=== PATIENT | female | born 1975 | race African-American/Black ===

== ENCOUNTER 2016-08-27 21:29 | Emergency (ER) | payer BC ==
[~2016-08-27] VITALS: Ht 167.6 cm; Wt 78.5 kg
--- NOTE | ~2016-08-27 | EKG ---
[address] [place] [address] ELECTROCARDIOGRAM REPORT Name: RANDEE WOLF Room #: DEP [facility]#: [id number] Admission: 08/27/16 Attend Phys: Discharge: 08/27/16 Date of : 75 Report #: [id number] THIS REPORT FOR: //name// [facility] ED Test Date: 2016-08-27 Test Time: 21:33:50 Pat Name: RANDEE WOLF Department: Room: Gender: F Drafter (Cad) Electrical: VICKIE : 1975 Requested By: Brielle Ibarra Order Number: [id number] MD: Fuentes De Anda Measurements Intervals [place] Rate: 63 P: 48 CT: 139 QRS: 76 QRSD: 89 T: 11 QT: 401 QTc: 411 Interpretive Statements Sinus rhythm Minimal ST depression, inferior leads Compared to ECG 12/23/2015 15:37:22 ST (T wave) deviation now present Sinus bradycardia no longer present Electronically Signed On 08-28-2016 8:27:46 DEPORTATION OFFICER by Fuentes De Anda [email or web address] <ELECTRONICALLY SIGNED> By: [place] [id number] 32 32 Fuentes De Anda MD /DIONI
[~2016-08-27 21:29] MED LIST: IBUPROFEN 600600 M1 PO; MACROBID 100 M100 M1 PO; METHADONE HCL 110 M1 PO; MOBIC15 MG PO; NAPROSYN500 MG PO; NEURONTIN 300300 M1 PO; NOHOMEMEDICATIONS; NORCO 5-325 TA1 EACH PO; NYSTATIN 100,0015 G1 TP; PREDNISONE 20 M20 MG PO; PROVENTIL HFA6.7 G1 INH; TESSALON PERLE100 MG PO; TRAMADOL 50 MG50 MG PO; ULTRAM 50MG TAB50 MG PO; VITAMIN D2000 UNIT PO; ZPAK PO
[2016-08-27] MEDS ORDERED: IBUPROFEN 800800 M1 PO (21:46)
[2016-08-27 21:56] LABS: ABSOLUTE NEUTROPHILS 5.4 thou/uL (1.4-8.2); BASOPHILS 0.8 % (0.0-2.0); EOSINOPHILS 1.9 % (0.0-3.0); HEMATOCRIT 38.7 % (37.0-47.0); HEMOGLOBIN 12.9 gm/dL (12.0-15.0); MCHC 33.3 % (28.0-37.0); MCV 81.1 fL (80.0-100.0); MONOCYTES 6.3 % (1.0-8.0); PLATELET COUNT 301 thou/uL (150-400); RBC 4.78 mil/uL (4.20-5.00); RDW 13.9 % (10.5-14.5); WBC 9.3 thou/uL (4.0-11.0)
[2016-08-27 22:12] LABS: MANUAL DIFF NO
[2016-08-27 22:25] LABS: ANION GAP 10 mmol/L (7-16); BUN 12 mg/dL (7-18); CALCIUM 9.3 mg/dL (8.5-10.1); CHLORIDE 105 mmol/L (98-107); CO2 26 mmol/L (21-32); CREATININE 0.8 mg/dL (0.6-1.3); GLUCOSE 86 mg/dL (70-99); POTASSIUM 4.1 mmol/L (3.5-5.1); SODIUM 141 mmol/L (136-145); TROPONIN-I < 0.04 ng/mL (<0.04-0.07)
[2016-08-27 23:18] VITALS: BP 112/55
[2016-10-15] MEDS ORDERED: MOBIC7.5 MG PO (12:53)
== END 2016-08-27 23:19 | disposition home or self-care (01) ==
LOC: ER 21:29
PROVIDERS: Emergency Medicine
DX: R07.89 Other chest pain (principal); Z90.711 Acquired absence of uterus with remaining cervical stump; Z88.6 Allergy status to analgesic agent

== ENCOUNTER 2017-03-22 19:02 | Emergency (ER) | payer BC ==
[~2017-03-22] VITALS: Ht 167.6 cm; Wt 78.5 kg
[~2017-03-22 19:02] MED LIST changes: +IBUPROFEN 800800 M1 PO; +MOBIC7.5 MG PO
== END 2017-03-22 22:38 | disposition home or self-care (01) ==
LOC: ER 19:02
DX: M79.605 Pain in left leg (principal); F10.99 Alcohol use, unspecified with unspecified alcohol-induced disorder; F12.10 Cannabis abuse, uncomplicated; Z90.711 Acquired absence of uterus with remaining cervical stump; Z88.6 Allergy status to analgesic agent

== ENCOUNTER 2018-08-11 14:35 | Emergency (ER) | payer BC ==
[~2018-08-11] VITALS: Ht 167.6 cm; Wt 81.7 kg
[2018-08-11 15:11] LABS: URINE BILIRUBIN NEGATIVE (Negative); URINE BLOOD NEGATIVE (Negative); URINE CLARITY CLEAR; URINE COLOR YELLOW; URINE GLUCOSE-RANDOM* NEGATIVE (Negative); URINE KETONES NEGATIVE (Negative); URINE LEUKOCYTES-REFLEX NEGATIVE (Negative); URINE NITRITE-REFLEX NEGATIVE (Negative); URINE PROTEIN (DIPSTICK) NEGATIVE (Negative); URINE SPECIFIC GRAVITY 1.015 (1.005-1.035); URINE UROBILINOGEN 0.2 E.U./dl (0.2-1.0)
[2018-08-11 15:37] LABS: ABSOLUTE NEUTROPHILS 4.4 thou/uL (1.4-8.2); BASOPHILS 0.9 % (0.0-2.0); EOSINOPHILS 1.7 % (0.0-3.0); HEMATOCRIT 39.9 % (37.0-47.0); HEMOGLOBIN 13.7 gm/dL (12.0-15.0); LYMPHOCYTES 33.2 % (24.0-44.0); MCH 28.1 pg (26.0-34.0); MCHC 34.3 g/dL (28.0-37.0); MONOCYTES 5.1 % (1.0-8.0); PLATELET COUNT 288 thou/uL (150-400); POLYS 59.1 % (36.0-66.0); RBC 4.87 mil/uL (4.20-5.00); RDW 13.9 % (10.5-14.5); WBC 7.4 thou/uL (4.0-11.0)
[2018-08-11 15:48] LABS: CALCIUM 9.5 mg/dL (8.5-10.1); CREATININE 0.8 mg/dL (0.6-1.0); POTASSIUM 3.9 mmol/L (3.5-5.1)
[2018-08-11 15:54] LABS: TOTAL BILIRUBIN 0.3 mg/dL (<0.1-1.0); TOTAL PROTEIN 8.4 g/dL (6.4-8.2)
[2018-08-11 16:40] VITALS: BP 121/70
== END 2018-08-11 16:41 | disposition home or self-care (01) ==
LOC: ER 14:35
PROVIDERS: Emergency Medicine
DX: R10.2 Pelvic and perineal pain (principal); R10.31 Right lower quadrant pain; Z88.6 Allergy status to analgesic agent; Z90.711 Acquired absence of uterus with remaining cervical stump

== ENCOUNTER 2019-02-07 15:59 | Emergency (ER) | payer BC ==
[~2019-02-07] VITALS: Ht 167.6 cm; Wt 81.2 kg
[2019-02-07 16:41] LABS: ABSOLUTE NEUTROPHILS 3.5 thou/uL (1.4-8.2); BASOPHILS 0.7 % (0.0-2.0); EOSINOPHILS 1.9 % (0.0-3.0); HEMATOCRIT 37.3 % (37.0-47.0); HEMOGLOBIN 12.4 gm/dL (12.0-15.0); LYMPHOCYTES 35.8 % (24.0-44.0); MCH 27.4 pg (26.0-34.0); MCHC 33.3 g/dL (28.0-37.0); MCV 82.1 fL (80.0-100.0); MONOCYTES 6.8 % (1.0-8.0); PLATELET COUNT 274 thou/uL (150-400); POLYS 54.8 % (36.0-66.0); RBC 4.54 mil/uL (4.20-5.00); WBC 6.3 thou/uL (4.0-11.0)
[2019-02-07 16:55] LABS: ALBUMIN 3.7 g/dL (3.4-5.0); CALCIUM 9.1 mg/dL (8.5-10.1); CREATININE 0.9 mg/dL (0.6-1.0); TOTAL BILIRUBIN 0.3 mg/dL (<0.1-1.0); TOTAL PROTEIN 7.7 g/dL (6.4-8.2)
[2019-02-07 18:04] VITALS: BP 135/59
--- NOTE | 2019-02-08 08:22 | EKG ---
[address] [address] ELECTROCARDIOGRAM REPORT Name: RANDEE WOLF Room #: DEP [facility]#: [id number] ������������������ Admission: 02/07/19 ������������������ Attend Phys: Discharge: 02/07/19 ������������������ Date of : 75 Report #: [id number] ����������������������������������������������������������������� [id number] THIS REPORT FOR: //name// [facility] ED Test Date: 2019-02-07 Test Time: 16:04:26 Pat Name: RANDEE WOLF Department: Room: Gender: F Cyber Incident Analyst: MARIA ANTONIA : 1975 Requested By: Lorena Smart Order Number: [id number] MD: Marek Morocho Measurements Intervals [place] Rate: 63 P: 49 GA: 133 QRS: 78 QRSD: 81 T: -12 QT: 394 QTc: 404 Interpretive Statements Sinus rhythm Borderline repolarization abnormality Compared to ECG 08/27/2016 21:33:50 no significant change was found Electronically Signed On 02-08-2019 8:22:41 CDT by Marek Morocho [email or web address] ��������������������������������������������� <ELECTRONICALLY SIGNED> ���������������������������������������� By: Marek Morocho MD, [facility] ��������������������������������������������� 02/08/19 0822 1604 160 Marek Morocho MD, FACC /EPI
== END 2019-02-07 18:27 | disposition home or self-care (01) ==
LOC: ER 15:59
PROVIDERS: Nurse Practitioner
DX: R07.89 Other chest pain (principal); Z90.711 Acquired absence of uterus with remaining cervical stump; Z88.6 Allergy status to analgesic agent

== ENCOUNTER 2020-03-26 17:08 | Emergency (ER) | payer BC ==
[~2020-03-26] VITALS: Ht 167.6 cm; Wt 83.0 kg
[2020-03-26 17:51] LABS: ABSOLUTE NEUTROPHILS 4.8 thou/uL (1.4-8.2); BASOPHILS 0.7 % (0.0-2.0); EOSINOPHILS 1.9 % (0.0-3.0); HEMATOCRIT 38.8 % (37.0-47.0); HEMOGLOBIN 13.1 gm/dL (12.0-15.0); LYMPHOCYTES 32.8 % (24.0-44.0); MCH 27.9 pg (26.0-34.0); MCHC 33.7 g/dL (28.0-37.0); MCV 82.8 fL (80.0-100.0); MONOCYTES 6.5 % (1.0-8.0); PLATELET COUNT 352 thou/uL (150-400); POLYS 58.1 % (36.0-66.0); RBC 4.69 mil/uL (4.20-5.00); WBC 8.3 thou/uL (4.0-11.0)
[2020-03-26 18:54] LABS: CREATININE 0.9 mg/dL (0.6-1.0); POTASSIUM 3.7 mmol/L (3.5-5.1)
[2020-03-26 18:59] LABS: ALBUMIN 3.9 g/dL (3.4-5.0); TOTAL BILIRUBIN 0.4 mg/dL (0.2-1.0)
[2020-03-26 19:32] LABS: URINE BILIRUBIN NEGATIVE (Negative); URINE BLOOD NEGATIVE (Negative); URINE CLARITY CLEAR; URINE COLOR YELLOW; URINE GLUCOSE-RANDOM* NEGATIVE (Negative); URINE KETONES NEGATIVE (Negative); URINE LEUKOCYTES-REFLEX NEGATIVE (Negative); URINE NITRITE-REFLEX NEGATIVE (Negative); URINE PROTEIN (DIPSTICK) NEGATIVE (Negative); URINE UROBILINOGEN 0.2 E.U./dl (0.2-1.0)
[2020-03-26] MEDS ORDERED: FLEXERIL PO (19:58)
[2020-03-26 19:59] VITALS: BP 127/77
== END 2020-03-26 19:59 | disposition home or self-care (01) ==
LOC: ER 17:08
PROVIDERS: Emergency Medicine
DX: R10.9 Unspecified abdominal pain (principal); R30.9 Painful micturition, unspecified; R60.0 Localized edema; Z90.711 Acquired absence of uterus with remaining cervical stump; Z79.899 Other long term (current) drug therapy; Z88.6 Allergy status to analgesic agent